=== PATIENT | male | born 1990 | race Caucasian/White ===

== ENCOUNTER 2017-02-01 16:50 | Emergency (ER) | payer SELFPAY ==
[2017-02-01] VITALS (7 sets, daily range): BP systolic 121–139; BP diastolic 70–113
[~2017-02-01] VITALS: Ht 172.7 cm; Wt 77.1 kg
[2017-02-01] MEDS ORDERED: Etomidate 40mg/20ml Inj IV ONE (17:00)
[2017-02-01] MEDS ORDERED: ceFAZolin sod 1 GM in NS 55 ML IVPB ONE (17:00)
[2017-02-01] MEDS ORDERED: fentaNYL 100 mcg/2 mL IV ONE ×2 (17:00→17:45)
--- NOTE | 2017-02-01 17:02 | Emergency Room Report ---
History of Present Illness General Chief Complaint: Lower Extremity Injury Source: Patient, EMS Present Illness HPI With his motorized skateboard accelerator got stuck and he was forced off and twisted his ankle. He also rolled and scraped his hands. There is no loss of consciousness. His ankle was deformed with severe pain. Denies any numbness there. Paramedics gave morphine 4 in field with some relief. Pain now 10/10, burning and aching. Constant and some radiation up leg. The patient denies medical problems and last ate approximately 3 hours ago. He is unsure when his last tetanus shot was. No fevers, NVD, cough, chest pain, abdominal pain, numbness, neck pain (though placed in hard collar). Allergies: Coded Allergies: AMOXICILLIN (Verified Allergy, Unknown, 02/01/17) PENICILLINS (Verified Allergy, Unknown, 02/01/17) Patient History Past Medical History: see triage record Social History: Denies: smoking Social History Narrative from [place] - here until 03/23. Reviewed Nursing Documentation: PMH: Agreed, PSxH: Agreed Nursing Documentation-PMH Past Medical History: No Stated History Review of Systems All Other Systems: negative except mentioned in HPI Physical Exam Vital Signs Date Time Temp Pulse Resp B/P Pulse Ox O2 Delivery O2 Flow Rate FiO2 02/01/17 16:45 102 20 120/68 97 Room Air Sp02 EP Interpretation: reviewed, normal General Appearance: well appearing, no apparent distress, GCS 15 Head: normocephalic, atraumatic Eyes: bilateral eye EOMI, bilateral eye PERRL, bilateral eye normal inspection ENT: moist mucus membranes Neck: supple, no bony tend, other - removed collar Respiratory: chest non-tender, lungs clear, normal breath sounds Cardiovascular #1: regular rate, rhythm Cardiovascular #2: 2+ radial (R), 2+ dorsalis pedis (R) Gastrointestinal: normal inspection, normal bowel sounds, non tender, no mass, non-distended Musculoskeletal: back normal, digits/nails normal, no calf tenderness, pelvis stable, swelling, other - lateral dislocation of ankle and foot Neurologic: alert, oriented x3, motor strength/tone normal, DTRs symmetric, sensory intact, speech normal Psychiatric: mood/affect normal Skin: warm/dry, abrasions - R hand, R medial maleolus without laceration Procedures Joint Reduction Joint Reduction : Consent: Verbal Joint Reduction Site: other - ankle R Reduction Attempts: One Pre-Procedure NV Exam: Yes Post-Procedure NV Exam: Yes Post Joint Reduction Film: joint reduced Patient Tolerated: Well Complications: None Progress fracture prior and post reduction Procedural Sedation Consent: Verbal Pre-Sedation Assessment: Pre-proc Edu. done, Plan for Sedation Discuss Airway Assessment (Malampati): I Heart: normal Lungs: normal Abdomen: normal Extremities: normal Procedures/Plans: Closed Reduction Plan for Moderate Sedation: Other - etomidate ASA Score: I Procedure Narrative Time out. Etomidate 10 given. Repeat etomidate 10 as patient still not sedated adequately. Reduction of foot/ankle. Splint applied by tech and myself. neurovasc normal after and good position. Abrasion over medial malleolus cleaned and dressed. Tolerated well. Start Time: 18:15 End Time: 18:22 Communication: No Apparent Limitation Mental Status: Awake Respiration: Unlabored Skin Condition: abrasions Abdomen: WNL Nausea: NO Vomiting: NO Additional Comments: Total time at bedside 30 minutes with splint application. Medical Decision Making Diagnostic Impression: Primary Impression: Fracture dislocation of ankle Qualified Codes: S82.891A - Other fracture of right lower leg, initial encounter for closed fracture ER Course Patient with obvious dislocation of ankle. Based on exam, fracture suspect and ligaments unstable. Will need emergent xrays and moderate sedation for reduction. As neurovasc intact, able to get xrays prior to reduction. Abraded skin of concern and will need reduction urgently. Analgesia ordered. Antibiotics also ordered. Analgesia repeated. Ther abrasion over the medial malleolus is not through and through and there is no fracture under this area. However, as skin compromised transiently, will cover with antibiotics. See procedure notes. Splint applied by me and tech. Neurovasc normal as checked by me. Discussed with Dr. Hernandez who based on x-rays feels patient able to follow up as outpatient. I advised patient would need operation. Patient stable for outpatient observation and treatment. Other X-Ray Diagnostic Results Other X-Ray Diagnostic Results #1: X-Ray Ordered: R ankle EP Interpretation: Yes Findings: other - fx fib, dislocation and STS (can't see if tibia also fx) Number of Views: 3 Other X-Ray Diagnostic Results #2: X-Ray Ordered: ankle Findings: no dislocation, other - fx fibula, ligament disruption Number of Views: 2 Status: improved Disposition: HOME, SELF-CARE Condition: Improved Scripts Cephalexin* (KEFLEX*) 500 Mg Capsule 500 MG ORAL EVERY 6 HOURS, #28 CAP Prov: Remi Gonzalez M.D. 02/01/17 Ibuprofen* (MOTRIN*) 600 Mg Tablet 600 MG ORAL Q6H Y for For Pain, #20 TAB Prov: Remi Gonzalez M.D. 02/01/17 Oxycodone/Acetaminophen 5-325* (PERCOCET 5-325 MG TABLET*) 1 Each Tablet 1 TAB ORAL Q6H Y for For Pain, #12 TAB 0 Refills Prov: Remi Gonzalez M.D. 02/01/17 Remi Gonzalez M.D. Feb 01, 2017 17:02
[2017-02-01] MEDS ORDERED: TdaP Vaccine 0.5ml Syr IM ONE (17:15)
--- NOTE | 2017-02-01 18:02 | Diagnostic Imaging Report ---
Indication: TRAUMA Technique: 3 views of the right ankle Comparison: none Findings: There is a fracture dislocation of the ankle. There is a longitudinally oriented fracture of the distal fibula, with separation of the fragments laterally by over 2 bone width. There is lateral dislocation of the talus from the tibia by one bone width. It is uncertain whether there is a lateral tibial fracture. There does not appear to be a medial tibial fracture. The there is also somewhat rotated. Impression: Positive for complex fracture/dislocation of the ankle, as described
[2017-02-01] MEDS ORDERED: Bacitracin Oint UD TOPIC ONE (18:17)
[2017-02-01] MEDS ORDERED: IBUPROFEN600 MG ORAL (19:58)
[2017-02-01] MEDS ORDERED: PERCOCET 5-3251 EACH ORAL (19:58)
[2017-02-01] MEDS ORDERED: CEPHALEXIN500 MG ORAL (19:58)
--- NOTE | 2017-02-02 10:15 | Diagnostic Imaging Report ---
Indication: Postreduction Technique: 3 views of the right ankle Comparison: 02/01/2017 Findings: Interim postreduction of previously demonstrated right ankle fracture dislocation, with satisfactory reduction of the tibiotalar joint. Distal fibular fracture persists, improved anatomic alignment, although fragments are still by about one half bone width. Impression: Postreduction ankle radiograph, as described This agrees with the preliminary interpretation provided by the emergency room physician
[2017-02-02] MEDS ORDERED: Etomidate 40mg/20ml Inj IV ONE (23:30)
== END 2017-02-01 20:35 | disposition home or self-care (01) ==
LOC: EDBD 16:50 → EMR 19:11
DX: S82.891A Other fracture of right lower leg, initial encounter for closed fracture (principal); S60.511A Abrasion of right hand, initial encounter; Z88.1 Allergy status to other antibiotic agents; Z88.0 Allergy status to penicillin; Z23 Encounter for immunization; V00.131A Fall from skateboard, initial encounter; Y92.9 Unspecified place or not applicable; Y99.8 Other external cause status
CPT/HCPCS: 27899; 29515; 73600; 73610; 90471; 90715; 96360; 96374; 96375; 99284; J0690; J3010